=== PATIENT | male | born 1985 | race Caucasian/White ===

== ENCOUNTER → 2020-09-12 11:36 | Outpatient (CLI) | payer BC, SELFPAY | PROVIDERS: PCP Nurse Practitioner Family; Visit Provider Nurse Practitioner Family | DX: G47.33 Obstructive sleep apnea (adult) (pediatric) (principal); I10 Essential (primary) hypertension; R40.0 Somnolence; R51.9 Headache, unspecified; R06.83 Snoring | CPT/HCPCS: G0399 ==